=== PATIENT | male | born 1990 | race Caucasian/White ===

== ENCOUNTER 2020-06-14 17:35 | Emergency (ER) | payer SELFPAY ==
--- NOTE | 2020-06-14 18:46 | RAD ---
Lumbar spine 3 views HISTORY: Back pain. FINDINGS: There are 5 lumbar type vertebrae. Pedicles are intact. Disc replacement at the L4-5 level. Vertebral body heights and alignment are maintained. Spinous process and laminae not visualized at the L4-5 level. Margins appear smooth. Small irregular densities projecting over the right lower quadrant may represent bowel content, posto perative changes, or extrinsic artifact. IMPRESSION : Absence of the L4 posterior elements is likely postoperative. Prior exams are not available for eugenio rison. No abnormalities are otherwise demonstrated.
[2020-06-14] MEDS ORDERED: Ketorolac Tromethamine 60 MG/2 ML VIAL ONE (19:05)
== END 2020-06-14 19:18 | disposition home or self-care (01) ==
LOC: NAV ERS 17:35
DX: M54.5 Low back pain (principal); I10 Essential (primary) hypertension; F41.9 Anxiety disorder, unspecified; F43.10 Post-traumatic stress disorder, unspecified; F32.9 Major depressive disorder, single episode, unspecified
CPT/HCPCS: 72100; 96372; J1885